=== PATIENT | male | born 2000 | race Two or more races ===

== ENCOUNTER 2025-03-06 09:44 | Emergency (ER) | payer OTHER, MEDICAID ==
[~2025-03-06] VITALS: Ht 172.7 cm; Wt 95.5 kg
[2025-03-06 10:36] VITALS: BP 109/87; PULSE 75; RESP 17; TEMP 98.9; O2SAT 98
== END 2025-03-06 11:20 | disposition home or self-care (01) ==
LOC: EMS 09:44
DX: F43.21 Adjustment disorder with depressed mood (principal); F31.9 Bipolar disorder, unspecified; F12.90 Cannabis use, unspecified, uncomplicated; F17.210 Nicotine dependence, cigarettes, uncomplicated; Z00.8 Encounter for other general examination
CPT/HCPCS: 99283; Z7502